=== PATIENT | female | born 2000 | race Caucasian/White ===

== ENCOUNTER 2020-05-24 00:51 | Emergency (ER) | payer BC, OTHER ==
[2020-05-24] MEDS ORDERED: Ketorolac 15 MG/ML SDV IVPUSH ONE (01:06)
[2020-05-24] MEDS ORDERED: Sodium Chloride 0.9% 2.5 ML Syringe FLUSH PRN (01:06)
[2020-05-24] MEDS ORDERED: Sodium Chloride 0.9% 10 ML Syringe FLUSH PRN (01:06)
--- NOTE | 2020-05-24 01:12 | EDM.PDOC ---
ED HPI GENERAL MEDICAL PROBLEM - General Chief Complaint: Respiratory Problem Stated Complaint: TROUBLE BREATHING Time Seen by Provider: 05/24/20 00:59 - History of Present Illness INITIAL COMMENTS - FREE TEXT/NARRATIVE: History of present illness:[] The patient has chest pain. It hurts to breathe. She reports pain in the anterior costochondral junction. She also has upper respiratory infection. She has a stuffy nose. She has had symptoms for 4 days but it is worse in the last 24 hours. She works at a place that is fairly busy with contact with the public. She reports an alteration in her taste sensation. Review of systems: As per history of present illness and below otherwise all systems reviewed and negative. Past medical history: As per history of present illness and as reviewed below otherwise noncont ributory. Surgical history: As per history of present illness and as reviewed below otherwise noncontributory. Social history: No reported history of drug or alcohol abuse. Family history: As per history of present illness and as reviewed below otherwise noncontributory. Physical exam: Constitutional - well developed, well-nourished and in no acute distress HEENT - normocephalic, no evidence of trauma - external nose and mouth normal - no mass in neck and no JVD - mucosae moist EYES - full EOM, PERRL, no icterus - no evidence of inflammation, injection, or drainage Respiratory - no respiratory distress, equal bilateral expansion, lungs clear to auscultation and no abnormal lung sounds Cardiovascular - Regular Rhythm with S1 and S2 appreciated and no murmur, gallop or rub. GI - abdomen soft without distension or organomegaly - normal bowel sounds - no guard or rebound Musculoskeletal no gross deformity of long bones or joints - no tenderness, swelling or edema Neurologic - Alert and oriented times four - CN II-XII grossly intact - motor sensory and coordination symmetrically normal Psychiatric - appropriate mood and affect with normal thought content Hematologic - No petechiae or purpura - mucosa appropriate color and sclera not pale - normal nail bed color and refill Integument - no rash or evidence of trauma - normal turgor Diagnostics: [] Therapeutics: [] Impression: [] Plan: [] Definitive disposition and diagnosis as appropriate pending reevaluation and review of above. - Related Data Allergies Allergy/AdvReac Type Severity Reaction Status Date / Time No Known Allergies Allergy Verified 05/24/20 00:57 Home Meds: Home Meds . [No Known Home Meds] 05/24/20 [History] Past Medical History - Past Health History Medical/Surgical History: Denies Medical/Surgical History Social & Family History - Tobacco Use Smoking Status *Q: Never Smoker - Recreational Drug Use Recreational Drug Use: No ED ROS GENERAL - Review of Systems Review Of Systems: Comprehensive ROS is negative, except as noted in HPI. ED EXAM, GENERAL - Physical Exam Exam: See Below Free Text/Narrative:: My physical exam is in the HPI EKG INTERPRETATION EKG Date: 05/24/20 Rhythm: NSR Rate (Beats/Min): 95 P-Wave: Present QRS: Normal Comparison: NA - No Prior EKG EKG Interpretation Comments: Normal Course - Vital Signs Last Recorded V/S: Last Vital Signs Temp 97.8 F 05/24/20 00:54 Pulse 97 05/24/20 00:54 Resp 18 05/24/20 00:54 BP 133/80 05/24/20 00:54 Pulse Ox 97 05/24/20 00:54 - Orders/Labs/Meds Orders: Active Orders 24 hr Category Date Time Status EKG Documentation Completion [RC] AM Care 05/24/20 01:06 Active Chest 1V Frontal [CR] Stat Exams 05/24/20 01:07 Ordered Sodium Chloride 0.9% [Saline Flush] Med 05/24/20 01:06 Active 10 ml FLUSH ASDIRECTED PRN Sodium Chloride 0.9% [Saline Flush] Med 05/24/20 01:06 Active 2.5 ml FLUSH ASDIRECTED PRN Saline Lock Insert [OM.PC] Stat Oth 05/24/20 01:06 Ordered Medication Orders Sodium Chloride (Saline Flush) 10 ml FLUSH ASDIRECTED PRN PRN Reason: Keep Vein Open Sodium Chloride (Saline Flush) 2.5 ml FLUSH ASDIRECTED PRN PRN Reason: Keep Vein Open Labs: Laboratory Tests 05/24/20 05/24/20 Range/Units 01:22 01:22 HCG, Qual NEGATIVE (NEG) COVID-19 (ESPERANZA) POSITIVE H (NEGATIVE) Meds: Medications Generic Name Dose Route Start Last Admin Trade Name Freq PRN Reason Stop Dose Admin Sodium Chloride 10 ml 05/24/20 01:06 Saline Flush FLUSH ASDIRECTED PRN Keep Vein Open Sodium Chloride 2.5 ml 05/24/20 01:06 Saline Flush FLUSH ASDIRECTED PRN Keep Vein Open Discontinued Medications Generic Name Dose Route Start Last Admin Trade Name Heidy PRN Reason Stop Dose Admin Diphenhydramine HCl 50 mg 05/24/20 02:03 Benadryl IVPUSH 05/24/20 02:04 ONETIME ONE Haloperidol Lactate 2 mg 05/24/20 02:04 Haldol IM 05/24/20 02:05 ONETIME ONE Ketorolac Tromethamine 15 mg 05/24/20 01:06 05/24/20 01:32 Toradol IVPUSH 05/24/20 01:07 15 mg ONETIME ONE Administration Lorazepam 2 mg 05/24/20 02:03 Ativan IVPUSH 05/24/20 02:04 ONETIME ONE Departure - Departure Time of Disposition: 02:19 Disposition: Home, Self-Care 01 Condition: Good Clinical Impression: COVID-19 - Discharge Information Instructions: COVID-19, COVID-19: How to Protect Yourself and Others - [facility] Referrals: PCP,None [Primary Care Provider] - Forms: ED Department Discharge Additional Instructions: [facility] - [facility] [address] [place] [address] [place] [address] The following information is given to patients seen in the emergency department who are being discharged to home. This information is to outline your options for follow-up care. We provide all patients seen in our emergency department with a follow-up referral. The need for follow-up, as well as the timing and circumstances, are variable depending upon the specifics of your emergency department visit. If you don't have a primary care physician on staff, we will provide you with a referral. We always advise you to contact your personal physician following an emergency department visit to inform them of the circumstance of the visit and for follow-up with them and/or the need for any referrals to a consulting specialist. The emergency department will also refer you to a specialist when appropriate. This referral assures that you have the opportunity for follow-up care with a specialist. All of these measure are taken in an effort to provide you with optimal care, which includes your follow-up. Under all circumstances we always encourage you to contact your private physician who remains a resource for coordinating your care. When calling for follow-up care, please make the office aware that this follow-up is from your recent emergency room visit. If for any reason you are refused follow-up, please contact the [facility] Emergency Department at and asked to speak to the emergency department charge nurse. Sepsis Event Note (ED) - Evaluation Sepsis Screening Result: No Definite Risk - Focused Exam Vital Signs: Vital Signs Temp Pulse Resp BP Pulse Ox 05/24/20 00:54 97.8 F 97 18 133/80 97 - My Orders Last 24 Hours: My Active Orders 05/24/20 01:06 EKG Documentation Completion [RC] AM Sodium Chloride 0.9% [Saline Flush] 10 ml FLUSH ASDIRECTED PRN Sodium Chloride 0.9% [Saline Flush] 2.5 ml FLUSH ASDIRECTED PRN Saline Lock Insert [OM.PC] Stat 05/24/20 01:07 Chest 1V Frontal [CR] Stat - Assessment/Plan Last 24 Hours: My Active Orders 05/24/20 01:06 EKG Documentation Completion [RC] AM Sodium Chloride 0.9% [Saline Flush] 10 ml FLUSH ASDIRECTED PRN Sodium Chloride 0.9% [Saline Flush] 2.5 ml FLUSH ASDIRECTED PRN Saline Lock Insert [OM.PC] Stat 05/24/20 01:07 Chest 1V Frontal [CR] Stat
[2020-05-24] MEDS ORDERED: diphenhydrAMINE 50 MG/ML SDV IVPUSH ONE (02:03)
[2020-05-24] MEDS ORDERED: LORazepam 2 MG/ML SDV IVPUSH ONE (02:03)
[2020-05-24] MEDS ORDERED: Haloperidol Lactate 5 MG/ML SDV IM ONE (02:04)
--- NOTE | 2020-05-24 02:42 | CR ---
Indication: Chest pain Technique: Chest 1 view Comparison: None Findings/Impression: Cardiovascular and mediastinum: Heart size and vasculature are normal in caliber and appearance. Lungs and pleural space: Lungs are clear. No sign of infiltrate or mass. No sign of pleural effusion. No pneumothorax. Bones and soft tissues: No acute findings. Dictated by Ezio oRwley MD @ May 24 2020 2:40AM Signed by Dr. Ezio Rowley @ May 24 2020 2:40AM
== END 2020-05-24 02:55 | disposition home or self-care (01) ==
LOC: MW.ED 00:51
DX: U07.1 COVID-19 (principal)
CPT/HCPCS: 36415; 71045; 84703; 87635; 93005; 96372; 96374; 96375; 99285; J1885; 99283; U0002

== ENCOUNTER 2020-05-27 17:43 | Emergency (ER) | payer BC, OTHER ==
--- NOTE | 2020-05-27 17:51 | EDM.PDOC ---
ED HPI GENERAL MEDICAL PROBLEM - General Chief Complaint: Respiratory Problem Stated Complaint: TROUBLE BREATHING Time Seen by Provider: 05/27/20 17:47 Source of Information: Reports: Patient History Limitations: Reports: No Limitations - History of Present Illness INITIAL COMMENTS - FREE TEXT/NARRATIVE: HISTORY AND PHYSICAL: History of present illness: Patient is a 20-year-old female who presents to the emergency room with complaints of shortness of breath and anterior chest pain with coughing over the past 24 hours. She states she has had a cough with respiratory symptoms for several days and recently tested positive for COVID-19 on 05/24/2020. She wanted to be re-evaluated as she was concerned with the shortness of breath with ambulation/physical activity. She has been taking [id number] Mucinex although does not feel like it is improving her symptoms. Patient denies any fever, chills, headache, change in vision, syncope or near syncope. Denies any abdominal pain, nausea, vomiting, diarrhea, constipation or dysuria. No concerns of . Patient has been eating and drinking appropriately. Review of systems: As per history of present illness and below otherwise all systems reviewed and negative. Past medical history: As per history of present illness and as reviewed below otherwise noncontributory. Surgical history: As per history of present illness and as reviewed below otherwise noncontributory. Social history: See social history for further information Family history: As per history of present illness and as reviewed below otherwise noncontributory. Physical exam: General: Well developed and well nourished 20 year old female. Alert and orientated x 3. Nontoxic in appearance and in no acute distress. Vital signs are stable and have been reviewed by me. Nursing notes were reviewed. HEENT: Atraumatic, normocephalic, pupils equal and reactive bilaterally, negative for conjunctival pallor or scleral icterus, mucous membranes moist, TMs normal bilaterally, throat clear, neck supple, nontender, trachea midline. No drooling or trismus noted. No meningeal signs. No hot potato voice noted. Lungs: Clear to auscultation, breath sounds equal bilaterally, chest nontender. Normal work of breathing, no accessory muscles used. Heart: S1S2, regular rate and rhythm without overt murmur Abdomen: Soft, nondistended, nontender. Skin: Intact, warm, dry. No lesions or rashes noted. Hematologic: No petechiae or purpra. Mucosa appropriate color and normal nail bed color and refill. Extremities: Atraumatic, moves all extremities per self without difficulty or deficits, negative for cords or calf pain. Neurovascular unremarkable. Neuro: Awake, alert, oriented. Cranial nerves II through XII unremarkable. Cerebellum unremarkable. Motor and sensory unremarkable throughout. Exam nonfocal. Psychiatric: Mood and affect are appropriate. Normal thought process. Answering questions appropriately. Notes: Chest x-ray is unremarkable. I have spoken with the patient and discussed today's findings, in addition to providing specific details for plan of care. Reassessment at the time of disposition demonstrates that the patient is in no acute distress. The patient is stable for discharge, counseling was provided and we discussed in great detail signs and symptoms that would prompt them to return to the Emergency Department. Medication, follow up and supportive care measures were reviewed and discussed. Voices understanding and is agreeable to plan of care. Denies any further questions or concerns at this time. Diagnostics: X-ray Therapeutics: None Prescription: None Impression: COVID 19 Plan: 1. COVID-19 is considered contagious - please stay home unless necessary. Your vital signs and oxygen saturation are well enough that you were able to monitor your symptoms at home. Continue to monitor for trouble breathing, new confusion or inability to arouse, bluish lips or face or any of the other symptoms we discussed -if this occurs please return to the emergency room. 2. Please self quarantine over the next 2 weeks. Inform any persons that you have been in contact with since you started becoming symptomatic that you have tested positive; they should be made aware and take the appropriate steps as needed. 3. You can take over the counter medications such as NyQuil during the evening to help get a restful night sleep. 4. You may alternate Tylenol and ibuprofen as needed for pain and fever management. 5. The [place] COVID 19 Hotline phone number , They are open Monday - Monday 7am - 7pm. Follow up with your primary care provider for re-evaluation and re-testing after the 2 week quarantine and discuss when you should be seen. Definitive disposition and diagnosis as appropriate pending reevaluation and review of above. chest Pain Score (Numeric/FACES): 5 - Related Data Allergies Allergy/AdvReac Type Severity Reaction Status Date / Time No Known Allergies Allergy Verified 05/27/20 17:47 Home Meds: Home Meds . [No Known Home Meds] 05/24/20 [History] Past Medical History - Past Health History Medical/Surgical History: Denies Medical/Surgical History ED ROS GENERAL - Review of Systems Review Of Systems: Comprehensive ROS is negative, except as noted in HPI. ED EXAM, GENERAL - Physical Exam Exam: See Below (See dictation) Course - Vital Signs Last Recorded V/S: Last Vital Signs Temp 97.0 F 05/27/20 17:47 Pulse 92 05/27/20 17:47 Resp 20 05/27/20 17:47 BP 106/77 05/27/20 17:47 Pulse Ox 99 05/27/20 17:47 Departure - Departure Time of Disposition: 18:37 Disposition: Home, Self-Care 01 Clinical Impression: COVID-19 - Discharge Information Instructions: COVID-19 Referrals: PCP,None [Primary Care Provider] - Forms: ED Department Discharge Additional Instructions: The following information is given to patients seen in the emergency department who are being discharged to home. This information is to outline your options for follow-up care. We provide all patients seen in our emergency department with a follow-up referral. The need for follow-up, as well as the timing and circumstances, are variable depending upon the specifics of your emergency department visit. If you don't have a primary care physician on staff, we will provide you with a referral. We always advise you to contact your personal physician following an emergency department visit to inform them of the circumstance of the visit and for follow-up with them and/or the need for any referrals to a consulting specialist. The emergency department will also refer you to a specialist when appropriate. This referral assures that you have the opportunity for follow-up care with a specialist. All of these measure are taken in an effort to provide you with optimal care, which includes your follow-up. Under all circumstances we always encourage you to contact your private physician who remains a resource for coordinating your care. When calling for follow-up care, please make the office aware that this follow-up is from your recent emergency room visit. If for any reason you are refused follow-up, please contact the [facility] Emergency Department at and asked to speak to the emergency department charge nurse. [facility] [address] [place] [address] [facility] [address] [place] [address] Thank you for choosing the [facility] emergency department in [place] for your medical needs today. It was a pleasure caring for you. Today you were seen in the emergency department for COVID-19 symptoms 1. COVID-19 is considered contagious - please stay home unless necessary. Your vital signs and oxygen saturation are well enough that you were able to monitor your symptoms at home. Continue to monitor for trouble breathing, new confusion or inability to arouse, bluish lips or face or any of the other symptoms we discussed -if this occurs please return to the emergency room. 2. Please self quarantine over the next 2 weeks. Inform any persons that you have been in contact with since you started becoming symptomatic that you have tested positive; they should be made aware and take the appropriate steps as needed. 3. You can take over the counter medications such as NyQuil during the evening to help get a restful night sleep. 4. You may alternate Tylenol and ibuprofen as needed for pain and fever management. 5. The [place] COVID 19 Hotline phone number , They are open Monday - Monday 7am - 7pm. Follow up with your primary care provider for re-evaluation and re-testing after the 2 week quarantine and discuss when you should be seen. Sepsis Event Note (ED) - Focused Exam Vital Signs: Vital Signs Temp Pulse Resp BP Pulse Ox 05/27/20 17:47 97.0 F 92 20 106/77 99
--- NOTE | 2020-05-27 18:29 | CR ---
Chest: PA view of the chest was obtained. Comparison: Prior chest x-ray of 05/24/20. Heart size and mediastinum are normal. Lungs are clear with no acute parenchymal change. Bony structures are grossly intact. Impression: 1. Nothing acute is appreciated on PA chest x-ray. Diagnostic code #1 This report was dictated in MDT
== END 2020-05-27 19:00 | disposition home or self-care (01) ==
LOC: MW.ED 17:43
DX: U07.1 COVID-19 (principal)
CPT/HCPCS: 71045; 71045-26; 99282; 99284-25

== ENCOUNTER 2020-06-15 20:35 | Emergency (ER) | payer BC, OTHER ==
--- NOTE | 2020-06-16 00:54 | CR ---
INDICATION: Shortness of breath, chest pain TECHNIQUE: Chest radiograph 1 view COMPARISON: 05/27/2020 FINDINGS: Mediastinum: The mediastinum is normal in appearance. The heart silhouette is normal in size and morphology. Lung: Both lungs are unremarkable in appearance. No sign of pleural effusion seen. No pneumothorax is identified. Bone and Soft tissue: Unremarkable for age. IMPRESSION: 1. No acute cardiopulmonary disease is seen. Dictated by: Marcelo Barahona MD @ 06/16/2020 00:51:24 (Electronically Signed)
[2020-06-16 02:10] LABS: BLOOD UREA NITROGEN,BUN 6 mg/dL (7.0-18.0); CARBON DIOXIDE,CO2 25.9 mmol/L (21.0-32.0); CHLORIDE,CL 102 mmol/L (98-107); GLUCOSE RANDOM 97 mg/dL (74-106); POTASSIUM,K 3.2 mmol/L (3.5-5.1); SODIUM,NA 140 mmol/L (136-145)
[2020-06-16] MEDS ORDERED: Potassium Chloride 10% 20 MEQ/15 ML Soln 30 ML UD Cup PO ONE (02:22)
--- NOTE | 2020-06-16 02:33 | EDM.PDOC ---
ED HPI GENERAL MEDICAL PROBLEM - General Chief Complaint: Chest Pain Stated Complaint: COVIC-19 COMPLICATION Time Seen by Provider: 06/15/20 23:35 - History of Present Illness INITIAL COMMENTS - FREE TEXT/NARRATIVE: CHIEF COMPLAINT(S): Chest pain HISTORY OF PRESENT ILLNESS: This is a 20-year-old woman without any significant past medical history who comes to the emergency department with a chief complaint of chest pain. The patient states that for 2 days now she has been experiencing chest tightness located in the center of her chest and left arm. She states that it feels like she got cold. Of note, she recently was diagnosed with coronavirus approximately 2 weeks ago. She states that the chest pain was rated 5 out of 10 without any radiation of the pain to her back. She states that there was no aggravating or relieving symptoms. She denies any diaphoresis nausea or vomiting with the symptoms but did feel a sensation of shortness of breath. She says that she has had an intermittent cough which is nonproductive. She denies any lower extremity edema, recent travel, recent surgery or prior history of DVT or PE. She denies any history of anxiety. She states that she is mainly concerned because she has a significant family history in which her father who is less than 50 had a heart attack. She denies any injury to her chest wall. She denies any rash. She denies any fevers or chills. REVIEW OF SYSTEMS: Constitutional: Denies fever, chills. Eyes: Denies eye pain Ears, Nose, Mouth, & Throat: Denies earache Cardiovascular: Positive for chest pain Respiratory: Positive for shortness of breath and intermittent cough Gastrointestinal: Denies Nausea, vomiting, diarrhea, hematochezia. Genitourinary: Denies hematuria Skin:Denies a rash Neurological: Denies blurred vision, numbness, tingling, with Psychiatric: Denies depression PAST MEDICAL HISTORY: As per history of present illness and as reviewed below otherwise noncontributory. SURGICAL HISTORY: As per history of present illness and as reviewed below otherwise noncontributory. SOCIAL HISTORY: As per history of present illness and as reviewed below otherwise noncontributory. FAMILY HISTORY: As per history of present illness and as reviewed below otherwise noncontributory. EXAMINATION OF ORGAN SYSTEMS/BODY AREAS: Constitutional: Blood pressure was 128/71, heart rate 86, respiratory rate 16 with an oxygen saturation 1% on room air. Temperature 36.1 General: Overall well-appearing woman who is in no acute distress Psychiatric: Appropriate mood and affect. Eyes: No scleral icterus or conjunctival erythema clear nasal turbinates. ENMT: Moist mucous membranes. No pharyngeal erythema Cardiovascular: Regular, rate, and rythym. No gallops, murmurs, or rubs. Bilateral upper extremity pulses symmetric and intact. No peripheral edema. No JVD. Respiratory: Lungs clear to auscultation bilaterally. No wheezes, rales, or rhonchi. Gastrointestinal: Soft, non-tender, non-distended. Normoactive bowel sounds Genitourinary: No suprapubic tenderness Musculoskeletal: Normal range of motion. Skin: No lesions or abrasions. Neurological: Alert, GCS 15 MEDICAL DECISION MAKING AND COURSE IN THE ED WITH INTERPRETATION/REVIEW OF DIAGNOSTIC STUDIES: This is a 20-year-old man with a recent coronavirus infection who comes to the emergency department with acute chest pain located in the center of her chest with radiation to her left arm associated with cough and shortness of breath who has normal vital signs and a normal physical examination. Given her family history we will obtain a cardiac work-up. The patient is currently pain-free therefore no pain medication will be provided. Twelve-lead EKG interpreted by myself. Normal sinus rhythm at a rate of 75beats per minute. Normal axis. OK interval is 147ms. QRS duration is 93ms. ST segments are normal without elevations or depressions. No Q waves present. Hypertrophy not noted. No prior EKGs in our system. Interpretation: Normal sinus rhythm The radiological images were viewed by myself along with reading the report from the radiologist. Chest x-ray does not reveal any acute cardiopulmonary process. Laboratory CBC reveals a leukocytosis of 11.50 with neutrophilic predominance. BMP reveals hypokalemia at 3.2 otherwise unremarkable. Troponin x1 is negative. hCG is negative. Magnesium normal. After labs I did provide the patient with potassium by mouth. I did discuss the results with the patient. I did discuss with her at this time that her chest pain is a unlikely due to a cardiac cause given the duration of her symptoms and the negative troponin. I did discuss with her that given her family history she should follow-up with her primary care physician for close monitoring. She is to return for any new or worsening symptoms. She was amenable to discharge at this time and had no further questions. DISPOSITION: The patient was discharged home in stable condition. The patient will follow up with PCP within 1 week CONDITION: Fair PROCEDURES: None FINAL IMPRESSION(S)/DIAGNOSES: 1. Acute atypical chest pain likely musculoskeletal Avinash Amin M.D.n left chest Pain Score (Numeric/FACES): 6 - Related Data Allergies Allergy/AdvReac Type Severity Reaction Status Date / Time No Known Allergies Allergy Verified 06/15/20 21:02 Home Meds: Home Meds . [No Known Home Meds] 05/24/20 [History] Past Medical History - Past Health History Medical/Surgical History: Denies Medical/Surgical History HEENT History: Reports: None Cardiovascular History: Reports: None Respiratory History: Reports: None Gastrointestinal History: Reports: None Genitourinary History: Reports: None SECURITY STRATEGIST History: Reports: None Musculoskeletal History: Reports: None Neurological History: Reports: None Psychiatric History: Reports: None Endocrine/Metabolic History: Reports: None Hematologic History: Reports: None Immunologic History: Reports: None Oncologic (Cancer) History: Reports: None Dermatologic History: Reports: None - Infectious Disease History Infectious Disease History: Reports: Novel Coronavirus - Past Surgical History Head Surgeries/Procedures: Reports: None Social & Family History - Family History Family Medical History: Noncontributory - Tobacco Use Smoking Status *Q: Never Smoker - Recreational Drug Use Recreational Drug Use: No ED ROS GENERAL - Review of Systems Review Of Systems: See Below ED EXAM, GENERAL - Physical Exam Exam: See Below Course - Vital Signs Last Recorded V/S: Last Vital Signs Temp 36.1 C 06/15/20 20:58 Pulse 90 06/16/20 02:46 Resp 18 06/16/20 02:46 BP 135/78 06/16/20 02:46 Pulse Ox 98 06/16/20 02:46 - Orders/Labs/Meds Labs: Laboratory Tests 06/16/20 06/16/20 06/16/20 Range/Units 01:39 01:39 01:39 WBC 11.50 H (4.0-11.0) K/uL RBC 4.48 (4.30-5.90) M/uL Hgb 13.1 (12.0-16.0) g/dL Hct 39.5 (36.0-46.0) % MCV 88.2 (80.0-98.0) fL MCH 29.2 (27.0-32.0) pg MCHC 33.2 (31.0-37.0) g/dL RDW Std Deviation 42.3 (28.0-62.0) fl RDW Coeff of Sejal 13 (11.0-15.0) % Plt Count 361 (150-400) K/uL MPV 9.60 (7.40-12.00) fL Neut % (Auto) 61.0 (48.0-80.0) % Lymph % (Auto) 26.7 (16.0-40.0) % Gaston % (Auto) 9.7 (0.0-15.0) % Eos % (Auto) 2.3 (0.0-7.0) % Baso % (Auto) 0.3 (0.0-1.5) % Neut # (Auto) 7.0 H (1.4-5.7) K/uL Lymph # (Auto) 3.1 H (0.6-2.4) K/uL Gaston # (Auto) 1.1 H (0.0-0.8) K/uL Eos # (Auto) 0.3 (0.0-0.7) K/uL Baso # (Auto) 0.0 (0.0-0.1) K/uL Nucleated RBC % 0.0 /100WBC Nucleated RBCs # 0 K/uL Sodium 140 (136-145) mmol/L Potassium 3.2 L (3.5-5.1) mmol/L Chloride 102 (98-107) mmol/L Carbon Dioxide 25.9 (21.0-32.0) mmol/L BUN 6 L (7.0-18.0) mg/dL Creatinine 0.6 (0.6-1.0) mg/dL Est Cr Clr Drug Dosing 137.68 mL/min Estimated GFR (MDRD) > 60.0 ml/min Glucose 97 (74-106) mg/dL Calcium 9.1 (8.5-10.1) mg/dL Magnesium 2.3 (1.8-2.4) mg/dL Troponin I < 0.050 (0.000-0.056) ng/mL HCG, Qual NEGATIVE (NEG) Meds: Medications Discontinued Medications Generic Name Dose Route Start Last Admin Trade Name Heidy PRN Reason Stop Dose Admin Potassium Chloride 40 meq 06/16/20 02:22 06/16/20 02:42 Potassium Chloride PO 06/16/20 02:23 40 meq ONETIME ONE Administration Departure - Departure Time of Disposition: 02:32 Disposition: Home, Self-Care 01 Condition: Fair Clinical Impression: Atypical chest pain - Discharge Information *PRESCRIPTION DRUG MONITORING PROGRAM REVIEWED*: No *COPY OF PRESCRIPTION DRUG MONITORING REPORT IN PATIENT CAREN: No Instructions: Chest Wall Pain, [id number], Nonspecific Chest Pain, Adult, [id number] Referrals: PCP,None [Primary Care Provider] - Forms: ED Department Discharge Additional Instructions: The patient is informed of any results of their evaluation and diagnostic workup and all questions are answered. They are given discharge instructions and return precautions. The patient is stable for discharge. The patient states they understand and agree with the plan and that they will return if their symptoms get worse or if they have any new concerns. The following information is given to patients seen in the emergency department who are being discharged to home. This information is to outline your options for follow-up care. We provide all patients seen in our emergency department with a follow-up referral. The need for follow-up, as well as the timing and circumstances, are variable depending upon the specifics of your emergency department visit. If you don't have a primary care physician on staff, we will provide you with a referral. We always advise you to contact your personal physician following an emergency department visit to inform them of the circumstance of the visit and for follow-up with them and/or the need for any referrals to a consulting specialist. The emergency department will also refer you to a specialist when appropriate. This referral assures that you have the opportunity for follow-up care with a specialist. All of these measure are taken in an effort to provide you with optimal care, which includes your follow-up. Under all circumstances we always encourage you to contact your private physician who remains a resource for coordinating your care. When calling for follow-up care, please make the office aware that this follow-up is from your recent emergency room visit. If for any reason you are refused follow-up, please contact the [facility] Emergency Department at and asked to speak to the emergency department charge nurse. [facility] [address] [place] [address] [facility] [address] [place] [id number] Sepsis Event Note (ED) - Evaluation Sepsis Screening Result: No Definite Risk - Focused Exam Vital Signs: Vital Signs Temp Pulse Resp BP Pulse Ox 06/16/20 02:46 90 18 135/78 98 06/15/20 20:58 36.1 C 86 16 128/71 100
== END 2020-06-16 02:47 | disposition home or self-care (01) ==
LOC: MW.ED 20:35
DX: R07.89 Other chest pain (principal)
CPT/HCPCS: 36415; 71045; 80048; 83735; 84484; 84703; 85025; 93005; 99285; A9270; 99282

== ENCOUNTER 2020-09-10 10:09 | Day surgery (SDC) | payer BC ==
[~2020-09-10 10:09] MED LIST: Lactated Ringers 1,000 ML IV SCH
[2020-09-10] MEDS ORDERED: Midazolam 1 MG/ML 2 ML SDV ONE ×2 (10:25→10:27)
[2020-09-10] MEDS ORDERED: fentaNYL 100 MCG/2 ML SDV ONE (10:27)
[2020-09-10] MEDS ORDERED: Propofol 200 MG/20 ML SDV ONE ×2 (10:27→13:10)
[2020-09-10] MEDS ORDERED: Ondansetron 4 MG/2 ML SDV ONE (10:32)
[2020-09-10] MEDS ORDERED: Glycopyrrolate 0.2 MG/ML SDV ONE (10:32)
[2020-09-10] MEDS ORDERED: Lidocaine 2% 5 ML SDV ONE (10:32)
--- NOTE | 2020-09-10 10:59 | PCM.PREANE ---
Preanesthetic Assessment - Anesthesia/Transfusion/Family Hx Anesthesia History: No Prior Anesthesia Family History of Anesthesia Reaction: No Transfusion History: No Prior Transfusion(s) - Review of Systems General: No Symptoms Pulmonary: No Symptoms Cardiovascular: No Symptoms Gastrointestinal: No Symptoms Neurological: No Symptoms Other: Reports: None - Physical Assessment NPO Status Date: 09/09/20 Vital Signs: Last Vital Signs Temp 97.2 F 09/10/20 10:16 Pulse 92 09/10/20 10:16 Resp 15 09/10/20 10:16 BP 120/72 09/10/20 10:16 Pulse Ox 99 09/10/20 10:16 Height: 5 ft 6 in Weight: 80.286 kg ASA Class: 2 Mental Status: Alert & Oriented x3 Airway Class: Mallampati = 2 Dentition: Reports: Normal Dentition ROM/Head Extension: Full Lungs: Clear to Auscultation, Normal Respiratory Effort Cardiovascular: Regular Rate, Regular Rhythm - Lab Values: Laboratory Last Values WBC 7.33 K/uL (4.0-11.0) 09/10/20 10:39 RBC 4.36 M/uL (4.30-5.90) 09/10/20 10:39 Hgb 12.7 g/dL (12.0-16.0) 09/10/20 10:39 Hct 38.3 % (36.0-46.0) 09/10/20 10:39 MCV 87.8 fL (80.0-98.0) 09/10/20 10:39 MCH 29.1 pg (27.0-32.0) 09/10/20 10:39 MCHC 33.2 g/dL (31.0-37.0) 09/10/20 10:39 RDW Std Deviation 40.0 fl (28.0-62.0) 09/10/20 10:39 RDW Coeff of Sejal 12 % (11.0-15.0) 09/10/20 10:39 Plt Count 278 K/uL (150-400) 09/10/20 10:39 MPV 10.10 fL (7.40-12.00) 09/10/20 10:39 Nucleated RBC % 0.0 /100WBC 09/10/20 10:39 Nucleated RBCs # 0 K/uL 09/10/20 10:39 - Allergies Allergies/Adverse Reactions: Allergies Allergy/AdvReac Type Severity Reaction Status Date / Time prednisone Allergy Itching Verified 09/07/20 12:21 - Blood Blood Available: Yes - Anesthesia Plan Pre-Op Medication Ordered: None - Acknowledgements Anesthesia Type Planned: General Anesthesia Pt an Appropriate Candidate for the Planned Anesthesia: Yes Alternatives and Risks of Anesthesia Discussed w Pt/Guardian: Yes Pt/Guardian Understands and Agrees with Anesthesia Plan: Yes Additional Comments: PMH: missed Ab at 9 weeks Plan: ga/lma PreAnesthesia Questionnaire - Past Health History Medical/Surgical History: Denies Medical/Surgical History HEENT History: Reports: None Cardiovascular History: Reports: None Respiratory History: Reports: None Gastrointestinal History: Reports: None Genitourinary History: Reports: None CERTIFIED MORTICIAN History: Reports: None Musculoskeletal History: Reports: None Neurological History: Reports: None Psychiatric History: Reports: None Endocrine/Metabolic History: Reports: None Hematologic History: Reports: None Immunologic History: Reports: None Oncologic (Cancer) History: Reports: None Dermatologic History: Reports: None - Infectious Disease History Infectious Disease History: Reports: Chicken Pox Other Infectious Disease History: when a child - Past Surgical History Head Surgeries/Procedures: Reports: None HEENT Surgical History: Reports: None Cardiovascular Surgical History: Reports: None GI Surgical History: Reports: None Female Surgical History: Reports: None Male Surgical History: Reports: None Musculoskeletal Surgical History: Reports: None Oncologic Surgical History: Reports: None - SUBSTANCE USE Tobacco Use Status *Q: Never Tobacco User - HOME MEDS Home Medications: Home Meds . [No Known Home Meds] 05/24/20 [History] - CURRENT (IN HOUSE) MEDS Current Meds: Current Medications Lactated Ringer's (Ringers, Lactated) 1,000 mls @ 125 mls/hr IV [facility] Last Admin: 09/10/20 10:25 Dose: 125 mls/hr Documented by: Discontinued Medications Fentanyl (Sublimaze) Confirm Administered Dose 100 mcg .ROUTE .STK-MED ONE Stop: 09/10/20 10:28 Glycopyrrolate (Robinul) Confirm Administered Dose 0.2 mg .ROUTE .STK-MED ONE Stop: 09/10/20 10:33 Lidocaine (Xylocaine-Mpf 2%) Confirm Administered Dose 5 ml .ROUTE .STK-MED ONE Stop: 09/10/20 10:33 Midazolam HCl (Versed 1 Mg/Ml) Confirm Administered Dose 2 mg .ROUTE .STK-MED ONE Stop: 09/10/20 10:26 Midazolam HCl (Versed 1 Mg/Ml) Confirm Administered Dose 2 mg .ROUTE .STK-MED ONE Stop: 09/10/20 10:28 Ondansetron HCl (Zofran) Confirm Administered Dose 4 mg .ROUTE .STK-MED ONE Stop: 09/10/20 10:33 Propofol (Diprivan 20 Ml) Confirm Administered Dose 200 mg .ROUTE .STK-MED ONE Stop: 09/10/20 10:28
[2020-09-10] MEDS ORDERED: Sodium Chloride 0.9% 10 ML Syringe FLUSH PRN (11:31)
[2020-09-10] MEDS ORDERED: Sodium Chloride 0.9% 10 ML SDV IV PRN (11:31)
[2020-09-10] MEDS ORDERED: Sodium Chloride 0.9% 2.5 ML Syringe FLUSH PRN (11:31)
[2020-09-10] MEDS ORDERED: Doxycycline 200 MG in Dextrose 5% in Water 250 ML IV ONE ×2 (12:00)
[2020-09-10] MEDS ORDERED: Acetaminophen 1,000 MG in Premix Bag 1 BAG IV PRN (13:19)
[2020-09-10] MEDS ORDERED: fentaNYL 100 MCG/2 ML SDV IVPUSH PRN (13:19)
[2020-09-10] MEDS ORDERED: Methylergonovine 0.2 MG/1 ML Amp ONE (13:21)
--- NOTE | 2020-09-10 14:09 | PCM.POSTAN ---
POST ANESTHESIA ASSESSMENT - MENTAL STATUS Mental Status: Alert, Oriented - VITAL SIGNS Vital Signs: Last Vital Signs Temp 36.2 C 09/10/20 10:16 Pulse 86 09/10/20 14:03 Resp 17 09/10/20 14:03 BP 117/73 09/10/20 14:03 Pulse Ox 99 09/10/20 14:03 - RESPIRATORY Respiratory Status: Respiratory Rate WNL, Airway Patent, O2 Saturation Stable - CARDIOVASCULAR CV Status: Pulse Rate WNL, Blood Pressure Stable - GASTROINTESTINAL GI Status: No Symptoms - PAIN Pain Score: 0 - POST OP HYDRATION Hydration Status: Adequate & Stable - OBSERVATIONS Free Text/Narrative:: The patient has no complaints at this time. There were no apparent anesthetic complications at this time. Discharge to phase 1 per criteria.
--- NOTE | 2020-09-10 14:25 | PCM48HPAN ---
Post Anesthesia Note - EVALUATION WITHIN 48HRS OF ANESTHETIC Vital Signs in Normal Range: Yes Patient Participated in Evaluation: Yes Respiratory Function Stable: Yes Airway Patent: Yes Cardiovascular Function Stable: Yes Hydration Status Stable: Yes Pain Control Satisfactory: Yes Nausea and Vomiting Control Satisfactory: Yes Mental Status Recovered: Yes Vital Signs: Last Vital Signs Temp 36.3 C 09/10/20 14:07 Pulse 89 09/10/20 14:07 Resp 16 09/10/20 14:07 BP 121/71 09/10/20 14:07 Pulse Ox 98 09/10/20 14:07 - COMMENTS/OBSERVATIONS Free Text/Narrative:: The patient sitting up in bed drinking juice, appears comfortable, and in no acute distress. She wants to go home. There were no apparent anesthetic complications at this time. Discharge home per criteria.
--- NOTE | 2020-09-11 02:12 | OR ---
SURGEON: Gurjit Fu MD DATE OF PROCEDURE: 09/10/2020 INDICATION FOR PROCEDURE: A 20-year-old, G1, P0, 10 weeks by last menstrual period with diagnosis of missed , presenting for scheduled dilation and curettage. The patient was seen last week in the office and had an ultrasound with a womack intrauterine measuring 9 weeks 1 day by crown-rump length with no heart rate, confirming a nonviable . Options were discussed with her including expectant management, medical management with Cytotec or surgical treatment, and she desired to proceed with dilation and curettage. PREOPERATIVE DIAGNOSIS: Missed . POSTOPERATIVE DIAGNOSIS: Missed . PROCEDURE PERFORMED: Suction dilatation and curettage. ANESTHESIOLOGIST: Dr. Meeks. ANESTHESIA: General anesthesia. FINDINGS: Uterus measuring about 9 week size, anteverted and mobile. Normal-appearing vagina and cervix. Products of conception were removed from the endometrial cavity and sent to Pathology. ESTIMATED BLOOD LOSS: 300 mL. DESCRIPTION OF PROCEDURE: The risks were discussed with the patient including bleeding, infection, and injury to surrounding organs like bowel, bladder and ureters. Questions answered and consent signed. The patient was brought to the operating room, where she was placed in dorsal lithotomy position, properly prepped and draped in a sterile manner under general anesthesia. The bladder was emptied with a straight catheter. Bimanual exam, revealed the uterus to be approximately 9-week size, anteverted, and mobile. No adnexal masses were felt. The cervix was exposed with a vaginal speculum, and the anterior lip of the cervix was grasped with a single- toothed tenaculum. The endocervical canal was progressively dilated with a Hegar dilator to a size number 9. A size number 9 suction curette was then connected to the suction under adequate pressure. It was placed in the cervical canal and advanced to the fundus. The suction curette was rotated while slowly extracting products of conception from the uterine cavity under adequate pressure. Three passes were made with the suction curette. A sharp curettage was then carefully performed. Two additional passes were made with the suction curettage until no more products were remaining. There was moderate amount of bleeding, a dose of Methergine was given for uterine tone. The bleeding improved after and was light. The tenaculum was removed. The cervix had a small amount of bleeding at the tenaculum site. Silver nitrate was applied to the site of bleeding, and hemostasis was confirmed. The fundus was firm after the procedure, and the bleeding was light. The patient tolerated the procedure well. She was awoken from anesthesia and taken to the recovery room in stable condition. JAIME JONES /[id number] MTDD
== END 2020-09-10 14:35 | disposition home or self-care (01) ==
LOC: MW.SDS 10:09
PROVIDERS: ATTEND Obstetrics & Gynecology
DX: O02.1 Missed abortion (principal); Z3A.10 10 weeks gestation of pregnancy; Z88.8 Allergy status to other drugs, medicaments and biological substances
CPT/HCPCS: 36415; 59820; 84703; 85027; 86850; 86900; 86901; 88305; J2001; J2210; J2250; J2405; J2704; J3490; J7120; 01965; J3010